=== PATIENT | male | born 1960 | race Caucasian/White ===

== ENCOUNTER 2022-10-21 11:11 | Emergency (ER) | payer BC ==
[2022-10-21 11:21] VITALS: PULSE 72; RESP 20
--- NOTE | 2022-10-21 11:59 | XR ---
EXAMINATION TYPE: XR ankle complete RT DATE OF EXAM: 10/21/2022 COMPARISON: NONE HISTORY: Pain FINDINGS: Three views of the ankle demonstrate the ankle mortise to be intact and symmetric. Comminuted fractur e extending to the articular surface of the calcaneus. IMPRESSION: 1. Comminuted fracture calcaneus
--- NOTE | 2022-10-21 12:35 | CT ---
EXAMINATION TYPE: CT ankle RT wo con CT DLP: 330.8 mGycm, Automated exposure control for dose reduction was used. DATE OF EXAM: 10/21/2022 12:22 PM COMPARISON: Extremity radiograph same day. CLINICAL INDICATION:Male, 61 years old with history of pain/fracture; PHH, Right ankle pain after lad lillie. TECHNIQUE: Axial images were obtained of the right ankle without the use of IV contrast. Additional coronal and sagittal reformatted images and soft tissue and bone window were obtained for review. 3-D reconstruction was created on a separate workstation. FINDINGS: There is an acute comminuted moderately displaced fracture of the calcaneus. This extends t o the articular surface of the calcaneus. There is associated soft tissue edema extending along the l ateral malleolus. Small joint effusion identified. Posterior and plantar calcaneal enthesophytes note d. Ankle mortise is intact. IMPRESSION: Acute moderately displaced comminuted fracture of the calcaneus.
[2022-10-21] MEDS ORDERED: Acetaminophen-Codeine 300-30mg TAB PO STA (12:54)
--- NOTE | 2022-10-21 13:23 | ED ---
Fall HPI - General Chief Complaint: Fall Stated Complaint: IHS - rt ankle injury Time Seen by Provider: 10/21/22 11:22 Source: patient, EMS, RN notes reviewed Mode of arrival: EMS Limitations: physical limitation - History of Present Illness Initial Comments: 61-year-old male presents emergency Department chief complaint right ankle injury. Patient states he is an 8 foot ladder proximal was 6 feet high when he thought the ground at work. Patient complains of right lateral ankle pain. Denies any head injury no low back pain. Denies any other complaints other than right ankle injury. - Related Data Allergies Allergy/AdvReac Type Severity Reaction Status Date / Time No Known Allergies Allergy Verified 10/21/22 11:22 Review of Systems ROS Statement: Those systems with pertinent positive or pertinent negative responses have been documented in the HPI. ROS Other: All systems not noted in ROS Statement are negative. Past Medical History Past Medical History: No Reported History History of Any Multi-Drug Resistant Organisms: None Reported Past Surgical History: No Surgical Hx Reported Past Psychological History: No Psychological Hx Reported Smoking Status: Never smoker Past Alcohol Use History: None Reported Past Drug Use History: None Reported General Exam Limitations: no limitations General appearance: alert, in no apparent distress Head exam: Present: atraumatic, normocephalic, normal inspection Respiratory exam: Present: normal lung sounds bilaterally. Absent: respiratory distress, wheezes, rales, rhonchi, stridor Cardiovascular Exam: Present: regular rate, normal rhythm, normal heart sounds. Absent: systolic murmur, diastolic murmur, rubs, gallop, clicks Extremities exam: Present: other (Right lateral malleoli region there is tenderness there is minimal tenderness of the calcaneus, there is swelling noted, no distal foot tenderness) Neurological exam: Present: alert Course Vital Signs 10/21/22 11:13 Temperature 97.7 F Pulse Rate 72 Respiratory 20 Rate Blood Pressure 147/89 O2 Sat by Pulse 97 Oximetry Procedures - Orthopedic Splinting/Casting Injury #1 Side: right Lower Extremity Injury Location: short leg, ankle, foot Lower Extremity Immobilizer: Hsu dressing, synthetic pre-padded splint Other Orthopedic Equipment: crutches, other (Knee scooter) Medical Decision Making - Medical Decision Making Was pt. sent in by a medical professional or institution (, PA, CARD HAND, urgent care, hospital, or usp...) When possible be specific @ -EMS provided prehospital care, injury and vitals Did you speak to anyone other than the patient for history (EMS, parent, family, police, friend...)? What history was obtained from this source @ -No Did you review nursing and triage notes (agree or disagree)? Why? @ -I reviewed and agree with nursing and triage notes Were old charts reviewed (outside hosp., previous admission, EMS record, old EKG, old radiological studies, urgent care reports/EKG's, usp records)? Report findings @ -No old charts were reviewed Differential Diagnosis (chest pain, altered mental status, abdominal pain women, abdominal pain men, vaginal bleeding, weakness, fever, dyspnea, syncope, headache, dizziness, GI bleed, back pain, seizure, CVA, palpatations, mental health, musculoskeletal)? @ -Right ankle fracture, right foot fracture EKG interpreted by me (3pts min.). @ -As above X-rays interpreted by me (1pt min.). @ -X-ray shows displaced calcaneus fracture CT interpreted by me (1pt min.). @ -CT showing displaced calcaneus fracture U/S interpreted by me (1pt. min.). @ -None done What testing was considered but not performed or refused? (CT, X-rays, U/S, labs)? Why? @ -None What meds were considered but not given or refused? Why? @ -None Did you discuss the management of the patient with other professionals (professionals i.e. , PA, CARD HAND, lab, RT, psych nurse, social work professor, clam shovel operator, teacher, tactical/mobile watch officer, piano case maker)? Give summary @ -Discussed the case with Adele at [facility] who reviewed the case with Dr. Stephens recommends patient follow up with Dr. Marina outpatient. This was arranged in which he reviewed imaging. Patient was splinted well- padded and follow-up orthopedics Was smoking cessation discussed for >3mins.? @ -No Was critical care preformed (if so, how long)? @ -No Were there social determinants of health that impacted care today? How? (Homelessness, low income, unemployed, alcoholism, drug addiction, transpor tation, low edu. Level, literacy, decrease access to med. care, care home, rehab)? @ -No Was there de-escalation of care discussed even if they declined (Discuss DNR or withdrawal of care, Hospice)? DNR status @ -No What co-morbidities impacted this encounter? (DM, HTN, Smoking, COPD, CAD, Cancer, CVA, ARF, Chemo, Hep., AIDS, mental health diagnosis, sleep apnea, morbid obesity)? @ -[None] Was patient admitted / discharged? Hospital course, mention meds given and route, prescriptions, significant lab abnormalities, going to OR and other pertinent info. @ -[Discharged with calcaneus fracture nonweightbearing we discussed elevation pain control, follow-up with Dr. Marina as discussed. Undiagnosed new problem with uncertain prognosis? @ -[No] Drug Therapy requiring intensive monitoring for toxicity (Heparin, Nitro, Insulin, Cardizem)? @ -[No] Were any procedures done? @ -[Splinting] Diagnosis/symptom? @ -[Right calcaneus fracture] Acute, or Chronic, or Acute on Chronic? @ -[Acute] Uncomplicated (without systemic symptoms) or Complicated (systemic symptoms)? @ -[Uncomplicated] Side effects of treatment? @ -[No] Exacerbation, Progression, or Severe Exacerbation? @ -[No] Poses a threat to life or bodily function? How? (Chest pain, [place], [place], pneumonia, PE, COPD, DKA, ARF, appy, cholecystitis, CVA, Diverticulitis, Homicidal, Suicidal, threat to staff... and all critical care pts) @ -[No] Disposition Clinical Impression: Fall, Right calcaneal fracture Disposition: HOME SELF-CARE Condition: Stable Instructions (If sedation given, give patient instructions): Calcaneal Fracture (ED) Additional Instructions: Please return to the Emergency Department if symptoms worsen or any other concerns. Is patient prescribed a controlled substance at d/c from ED?: Yes Referrals: Miguel Marina DO [REFERRING] - 1-2 days [facility],Equipment [NON-STAFF] - (Supplier of crutches, contact if wanting a knee scooter ) Serjio Cutler MD [Primary Care Provider] - 1-2 days [facility] [NON-STAFF] - (Supplier of equipement if needed. ) Time of Disposition: 13:11
[2022-10-21 14:12] VITALS: BP 132/78; TEMP 98.6
== END 2022-10-21 14:20 | disposition home or self-care (01) ==
LOC: EC 11:11
DX: S92.001A Unspecified fracture of right calcaneus, initial encounter for closed fracture (principal); W11.XXXA Fall on and from ladder, initial encounter; Y99.0 Civilian activity done for income or pay
CPT/HCPCS: 99284

== ENCOUNTER → 2024-09-06 | Outpatient (CLI) | payer MEDICARE ==
--- NOTE | 2024-09-06 10:41 | XR ---
EXAMINATION TYPE: XR shoulder complete RT DATE OF EXAM: 09/06/2024 10:24 AM COMPARISON: None CLINICAL INDICATION: Male, 63 years old with history of M25.511 PAIN IN RIGHT SHOULDER; PHH, pain TECHNIQUE: XR shoulder complete RT; examined in AP, internally rotated and scapular Y projections. FINDINGS: No evidence of acute osseous pathology, joint dislocation, or soft tissue swelling. The remaining po rtions of the visualized chest are unremarkable. Degeneration changes of the acromion, distal clavic le with osteophyte formation. There is osteophyte formation of the glenoid and humeral head. There is joint space narrowing of glenohumeral joint. IMPRESSION: 1. No acute osseous pathology. 2. Mild shoulder osteoarthrosis. [facility], , 09/06/2024 10:39 AM
--- NOTE | 2024-09-06 10:53 | XR ---
EXAMINATION TYPE: XR cervical spine w flex/ext DATE OF EXAM: 09/06/2024 10:24 AM COMPARISON: None. CLINICAL INDICATION: Male, 63 years old with history of M25.511 PAIN IN RIGHT SHOULDER, pain TECHNIQUE: Frontal, lateral, oblique, swimmers, and open mouth view of the cervical spine are obtaine d. Additional flexion and extension views obtained. FINDINGS: The cervical spine is visualized in its entirety from C1 thru the top of T1 level, it is s atisfactory in alignment without evidence of acute fracture or dislocation. The pre-vertebral soft t issue appears within normal limits. Moderate to severe degenerative narrowing C4-5, C5-6 and C6-7 wi th stable alignment of flexion, extension and neutral. The C1-C2 articulation is within normal limits on the open mouth view. The oblique images are within normal limits. IMPRESSION: No acute fracture or dislocation is seen in the cervical spine. [facility], , 09/06/2024 10:51 AM
== END | disposition home or self-care (01) ==
LOC: LABWHC1 09:57
PROVIDERS: ATTEND Internal Medicine
DX: M19.011 Primary osteoarthritis, right shoulder (principal)
CPT/HCPCS: 72052

== ENCOUNTER → 2024-09-22 | Outpatient (CLI) | payer MEDICARE ==
--- NOTE | 2024-09-22 08:06 | US ---
EXAMINATION TYPE: US Aorta Screening DATE OF EXAM: 09/22/2024 COMPARISON: NONE CLINICAL INDICATION: Male, 63 years old with history of Z13.6 SCREENING FOR AAA; no symptoms, screeni ng TECHNIQUE: Multiple sonographic images of the abdominal aorta are obtained with grayscale and color D oppler imaging. FINDINGS: EXAM MEASUREMENTS: Abdominal Aorta: Proximal: gassed out Mid: 2.3 x 2.5cm Distal: 2.2 x 2.3cm Bifurcation: Right Iliac: 1.4 x 1.4cm Left Iliac: 1.3 x 1.3cm YARD CLEANER NOTES: No AAA seen IMPRESSION: Borderline ectasia mid abdominal aorta at 2.5 cm. Proximal abdominal aorta is obscured and could not be assessed. No AAA seen. [facility], , 09/22/2024 8:04 AM
--- NOTE | 2024-09-22 08:20 | US ---
EXAMINATION TYPE: US carotid duplex BILAT DATE OF EXAM: 09/22/2024 COMPARISON: NONE CLINICAL INDICATION: Male, 63 years old with history of I65.23 OCCLUSION AND STENOSIS; screening, jigar guerrier. TECHNIQUE: Grayscale, color Doppler and spectral Doppler evaluation of the bilateral carotid systems and vertebral arteries. Indirect Doppler criteria was utilized. FINDINGS: EXAM MEASUREMENTS: RIGHT: Peak Systolic Velocity (PSV) cm/sec ----- Right CCA: 123.0 ----- Right ICA: 175.0 ----- Right ECA: 65.8 ICA/CCA ratio: 1.4 RIGHT: End Diastole cm/sec ----- Right CCA: 35.3 ----- Right ICA: 63.9 ----- Right ECA: 13.9 LEFT: Peak Systolic Velocity (PSV) cm/sec ----- Left CCA: 72.5 ----- Left ICA: 98.7 ----- Left ECA: 82.5 ICA/CCA ratio: 1.4 LEFT: End Diastole cm/sec ----- Left CCA: 23.6 ----- Left ICA: 35.1 ----- Left ECA: 19.5 VERTEBRALS (direction of flow): Right Vertebral: Antegrade Left Vertebral: Antegrade Rhythm: Normal STAFFING ADMINISTRATOR NOTES: Mild homogeneous plaque with no stenosis seen, tortuous ICA bilaterally Color Doppler imaging shows patency with blood flow throughout the carotid artery. Spectral waveforms are within normal limits. IMPRESSION: No hemodynamically significant internal carotid artery stenosis on either side. Criteria for Assigning % of Stenosis / Diameter reduction (Estimation based on the indirect measurements of the internal carotid artery velocities (ICA PSV). 1. Normal (no stenosis)=ICA PSV < 180 cm/s: ratio < 2.0: ICA EDV<40 cm/s. 2. Less than 50% stenosis=ICA PSV < 180 cm/s: ratio < 2.0: ICA EDV<40 cm/s. 3. 50 to 69% stenosis=ICA PSV of 180 to 230 cm/s: ration 2.0 ? 4.0: ICA EDV 40-100 cm/s. PSV 125-180 cm/sec and ICA/CCA PSV Ratio ? 2.0 is also consistent with 50-69% stenosis 4. Greater than 70% stenosis to near occlusion= ICA PSV > 230 cm/s: ratio > 4.0: ICA EDV > 100 cm/s. 5. Near occlusion= ICA PSV velocities may be low or undetectable: variable ratio and ICA EDV. 6. Total occlusion=unable to detect flow. [facility], Workstation: [facility], 09/22/2024 8:17 AM
--- NOTE | 2024-09-22 11:53 | CTL ---
EXAMINATION TYPE: CT Low Dose Lung DATE OF EXAM: 09/22/2024 9:25 AM COMPARISON: None. CLINICAL INDICATION: Male, 63 years old with history of Z12.2 SCREENING, Former smoker, was 1 ppd x 4 0 years no concerns noted, History of tobacco use. TECHNIQUE: Low dose computed tomography scan was performed through the chest at 1 mm thick sections a nd reconstructed images in multiple planes at 1 mm and [address] DLP: 79 mGycm, CT CTDI: 2.07 mGy, Automated exposure control for dose reduction was used. CT DIAGNOSTIC QUALITY: Limited, but interpretable FINDINGS: The heart is normal size without pericardial effusion. Mild LAD and RCA coronary calcifications are p resent. Mild atherosclerotic arch calcifications with conventional arch vessel branching anatomy. Upper desce nding thoracic aorta borderline ectatic at 3.0 cm. Tortuous descending thoracic aorta with additional ectasia of the midportion measuring 2.9 cm. Distal portion borderline aneurysmal at 3.0 cm. Mild diffuse bronchial wall thickening. Some minimal strandy scarring/atelectasis scattered throughou t. No consolidation or pleural effusion. 5 mm anterior right upper lobe pulmonary nodule, axial image 106. 5 mm posterior right mid lung pulmonary nodule, axial image 165. 6 mm posterior right midlung pulmonary nodule, axial image 176. 5 mm lateral right lower lobe pulmonary nodule, axial image 217. 4 mm lateral left basilar pulmonary nodule, axial image 255 5 mm left lower lobe pulmonary nodule, axial image 220. 4 mm lateral left upper lobe pulmonary nodule, axial image 93. Visualized upper abdomen shows a small hiatal hernia but otherwise, no gross abnormality. Dextroconvex scoliosis of the thoracic spine with mild to moderate degenerative disc disease lower th oracic spine. IMPRESSION: 1. LungRADS Category 3 (probably benign, 1-2% chance of malignancy); a few scattered pulmonary nodule s measuring 6 mm and smaller on baseline screening. 2. Tortuous thoracic aorta. The descending portion is ectatic measuring up to 3.0 cm. 3. Small hiatal hernia. Dextroconvex scoliosis. CT LUNG RAD AND CT CHEST RECOMMENDATION: Lung-Rad 3 Probably Benign: 6 month follow-up LDCT. S Modifier (other clinically significant findings): None [facility], , 09/22/2024 11:51 AM
== END | disposition home or self-care (01) ==
LOC: RADUSWWP 07:22
PROVIDERS: ATTEND Internal Medicine
DX: Z12.2 Encounter for screening for malignant neoplasm of respiratory organs (principal); Z13.6 Encounter for screening for cardiovascular disorders; I65.23 Occlusion and stenosis of bilateral carotid arteries; K44.9 Diaphragmatic hernia without obstruction or gangrene; I77.810 Thoracic aortic ectasia; Z87.891 Personal history of nicotine dependence
CPT/HCPCS: 71271; 76706; 93880

== ENCOUNTER → 2024-11-09 | Outpatient (CLI) | payer MEDICARE ==
--- NOTE | 2024-11-09 12:40 | NM ---
EXAMINATION TYPE: NM stress cardiolite complete DATE OF EXAM: 11/09/2024 COMPARISON: NONE CLINICAL INDICATION: Male, 63 years old with history of I25.10 ATHSCL HEART DISEASE OF [place] CORONAR Y ART; hypercholesterolemia, former smoker, family history of heart disease. TECHNIQUE: After the intravenous administration of 10.01 mCi Tc 99m Sestamibi - Rest images obtained 45 minutes post injection. The patient exercised using a JEROD protocol and 1 minute prior to peak exercise was injected with 23.6 mCi Tc 99m Sestamibi - Stress images obtained 10 minutes post inject ion. FINDINGS: Targeted heart rate (132 BPM) was achieved during performance of the study (138 bpm achieved). Total exercise time 3 minutes 19 seconds. Review of stress and rest SPECT images demonstrates small fixed a pical defect. No discrete reversibility is seen. Gated analysis shows normal wall motion with an joe mated left ventricular ejection fraction of 62 %. TID is calculated at 0.82, within normal limits. IMPRESSION: Small fixed apical defect could reflect old infarct or apical thinning. No scintigraphic evidence fo r reversible ischemia [facility], , 11/09/2024 12:38 PM
--- NOTE | 2024-11-09 14:53 | CA ---
Transthoracic Echo Report Name: Tim Jenkins Age: 63 Gender: M : 1960 Exam Date: 11/09/2024 09:44 Exam Location: [place] [facility] Ht (in): 71 Wt (lb): 250 Ordering Physician: Piper Sterling MD Attending/Referring Phys: Piper Sterling MD Wool Fleece Sorter Sayra Cotto [facility] Procedure CPT: Indications: I25.10 ATHSCL HEART DISEASE OF [place] CORONARY ART Cardiac Hx: Technical Quality: Good Contrast 1: Total Dose (mL): Contrast 2: Total Dose (mL): MEASUREMENTS (Male / Female) Normal Values 2D ECHO LV Diastolic Diameter PLAX 4.9 cm 4.2 - 5.9 / 3.9 - 5.3 cm LV Systolic Diameter PLAX 3.4 cm IVS Diastolic Thickness 1.2 cm 0.6 - 1.0 / 0.6 - 0.9 cm LVPW Diastolic Thickness 1.2 cm 0.6 - 1.0 / 0.6 - 0.9 cm LV Relative Wall Thickness 0.5 RV Internal Dim ED PLAX 3.5 cm LA Systolic Diameter LX 4.3 cm 3.0 - 4.0 / 2.7 - 3.8 cm LV Diastolic Volume MOD 4C 128.7 cm??? LV Systolic Volume MOD 4C 59.1 cm??? LV Ejection Fraction MOD 4C 54.1 % LV Cardiac Index MOD 4C 2211.9 cm???/min???m??? LV Diastolic Length 4C 9.3 cm LV Systolic Length 4C 7.2 cm LV Diastolic Volume MOD 2C 121.5 cm??? LV Systolic Volume MOD 2C 48.6 cm??? LV Ejection Fraction MOD 2C 60.0 % LV Cardiac Index MOD 2C 2316.0 cm???/min???m??? LV Diastolic Length 2C 9.0 cm LV Systolic Length 2C 7.4 cm M-MODE Aortic Root Diameter MM 3.1 cm AV Cusp Separation MM 2.4 cm DOPPLER AV Peak Velocity 122.4 cm/s AV Peak Gradient 6.0 mmHg Mitral E Point Velocity 70.5 cm/s Mitral A Point Velocity 68.4 cm/s Mitral E to A Ratio 1.0 MV Deceleration Time 228.9 ms MV E' Velocity 5.2 cm/s Mitral E to MV E' Ratio 13.6 TR Peak Velocity 211.8 cm/s TR Peak Gradient 18.0 mmHg Right Ventricular Systolic Press 28.0 mmHg FINDINGS Left Ventricle Left ventricular ejection fraction is estimated at 55-60 %. Left ventricular cavity size normal. Mildly increased septal wall thickness. Normal left ventricular wall motion. Right Ventricle Mild right ventricular dilatation. Right ventricular systolic pressure within normal limits. Right Atrium Borderline right atrial dilatation. No right atrial thrombus or mass seen. Left Atrium Mildly increased left atrial diameter. No left atrial thrombus or mass present. Mitral Valve Structurally normal mitral valve. No mitral stenosis, regurgitation or prolapse. Aortic Valve Trileaflet aortic valve. No aortic valve stenosis or regurgitation. Tricuspid Valve Structurally normal tricuspid valve. Mild tricuspid regurgitation. Pulmonic Valve Structurally normal pulmonic valve. No pulmonic regurgitation. Pericardium No pericardial effusion. Aorta Normal size aortic root and proximal ascending aorta. CONCLUSIONS Reason for echo Preserved LV systolic function, mild left ventricular hypertrophy Mild RV enlargement Prominent posterior pericardial stripe Previewed by: Dr. Maury Villalobos MD (Electronically Signed) Final Date: 09 Nov 2024 14:52
--- NOTE | 2024-11-09 15:08 | CA ---
Exercise Stress Test Report Name: Tim Jenkins Exam Date: 11/09/2024 11:34 Exam Location: [place] [facility] Ht (in): 71 Wt (lb): 250 BSA: 2.32 Ordering Phys: Piper Sterling MD Referring Phys: Piper Sterling MD Technologist: MADELYN MICHAELS Age: 63 Gender: M : 1960 Procedure CPT: Indications: I25.10 ATHSCL HEART DISEASE OF [place] CORONARY ART ICD-10 Codes: Patient History: FAMILY HX, HIGH CHOL. Medications: STATIN,,, Meds past 24 hrs: Pretest Chest Pain: STRESS TEST Protocol Exercise Duration (min:sec): 03:[address] Depressions (mm): Angina Score: Pace Score: Resting HR (bpm): 74 Peak HR (bpm): 139 Resting BP (mmHg): 114 / 75 Peak BP (mmHg): 185 / 80 MPHR: 155 Target HR: 132 % MPHR: 90 METS: 4.7 Total Dose: Peak Dose: Atropine: Double Product: 45516 BP Response: Stress Termination: TARGET HR REACHED/MAX EXERTION Stress Symptoms: SOB Stress Summary: ECG ANALYSIS Resting ECG: Stress ECG: CONCLUSIONS Reason for test: CAD dyslipidemia and longstanding history of smoking for 45 years, quit 3 years back ECG stress test shows poor exercise capacity of 3 minutes on a Tim protocol No ECG evidence for ischemia at this low workload level Dr. Maury Villalobos MD (Electronically Signed) Final Date: 09 Nov 2024 15:07
== END | disposition home or self-care (01) ==
LOC: RADNMMAIN 08:55
PROVIDERS: ATTEND Internal Medicine
DX: I25.10 Atherosclerotic heart disease of native coronary artery without angina pectoris (principal); I51.7 Cardiomegaly
CPT/HCPCS: 93017; 93306; 78452; A9500